=== PATIENT | female | born 1980 | race African-American/Black ===

== ENCOUNTER 2016-04-21 16:58 | Emergency (ER) | payer MEDICAID ==
[~2016-04-21] VITALS: Ht 160 cm; Wt 77.7 kg
[~2016-04-21 16:58] MED LIST: AMOXICILLIN 50500 MG PO; GICOCKTAIL PO; K-DUR 10 MEQ T10 MEQ PO; KLOR-CON M2020 MEQ PO; KLOR-CON20 MEQ PO; LANTUS100 U/ML SQ; MAG-OX 400400 MG/TAB PO; NORCO 325 MG-51 TAB PO; NOVOLOG 100U100 U/M1 SQ; OMNICEF 300MG300 MG PO; PHENERGAN 25 TA25 MG PO; PHENERGAN25 MG RC; REGLAN 10MG10 MG/TAB PO; TUMS EXTRA STR750 MG PO; ULTRAM 50MG TAB50 MG PO; ZOFRAN 4MG T4 MG/TAB PO; ZOFRAN ODT8 MG PO; ZOFRAN8 MG PO
[2016-04-21 17:09] VITALS: TEMP 98.8
[2016-04-21 18:03] LABS: BASO # 0.1 (0.0-0.2); BASO % 0.7 % (0.0-2.0); EOS % 0.4 % (0-4.0); GRAN # 6.5 (1.4-6.5); GRAN % 65.8 % (42.2-75.2); HEMATOCRIT 37.6 % (37.0-47.0); HEMOGLOBIN 12.6 g/dl (12.5-16.0); LYMPH # 2.6 (1.2-3.4); LYMPH % 26.2 % (20.0-51.0); MEAN CELL VOLUME 93 fl (80.0-100.0); MEAN CORPUSCULAR HEMOGLOBIN 31 pg (27.0-31.0); MEAN CORPUSCULAR HGB CONC 34 g/dl (33.0-37.0); MEAN PLATELET VOLUME 12.5 fl (7.4-10.4); MONO # 0.7 (0.1-0.6); MONO % 6.8 % (1.7-9.3); PLATELET COUNT 212 K/mm3 (130-400); RED BLOOD COUNT 4.05 M/mm3 (4.10-5.30); REDCELL DISTRIBUTION WIDTH-CV 12.3 % (11.5-14.5); WHITE BLOOD COUNT 9.9 K/mm3 (4.8-10.8)
[2016-04-21 18:23] LABS: ADJUSTED CALCIUM 9.8 mg/dL (8.4-10.2); ALANINE AMINOTRANSFERASE 40 U/L (9-52); ALBUMIN 4.8 gm/dL (3.5-5.0); ALKALINE PHOSPHATASE 59 U/L (50-136); ANION GAP 14 mmol/L (7-16); BILIRUBIN,TOTAL 0.9 mg/dL (0.0-1.0); BLOOD UREA NITROGEN 11 mg/dL (7-17); CALCIUM 10.4 mg/dL (8.4-10.2); CARBON DIOXIDE 30 mmol/L (22-30); CHLORIDE 98 mmol/L (98-107); CREATININE, serum 0.76 mg/dL (0.52-1.25); GLUCOSE 180 mg/dL (74-106); LIPASE 100 U/L (23-300); POTASSIUM 3.6 mmol/L (3.4-5.0); SODIUM 143 mmol/L (137-145); TOTAL PROTEIN 8.8 gm/dL (6.4-8.2)
[2016-04-21 18:37] LABS: C-REACTIVE PROTEIN < 0.5 mg/dL (0.0-0.9)
[2016-04-21] MEDS ORDERED: PHENERGAN25 MG RC (18:50)
[2016-04-21 19:32] VITALS: BP 129/81; PULSE 78
== END 2016-04-21 19:37 | disposition home or self-care (01) ==
LOC: COL.ER 16:58
PROVIDERS: Emergency Medicine
DX: R10.84 Generalized abdominal pain (principal); R11.10 Vomiting, unspecified; E11.43 Type 2 diabetes mellitus with diabetic autonomic (poly)neuropathy; K31.84 Gastroparesis; Z79.4 Long term (current) use of insulin
CPT/HCPCS: J1170; J2405; J2550; J7030

== ENCOUNTER 2016-04-23 15:03 | Emergency (ER) | payer MEDICAID ==
[~2016-04-23] VITALS: Ht 160 cm; Wt 77.3 kg
[2016-04-23 16:10] LABS: BASO # 0.1 (0.0-0.2); BASO % 0.8 % (0.0-2.0); EOS # 0.1 (0.0-0.7); EOS % 0.6 % (0-4.0); GRAN # 7.2 (1.4-6.5); GRAN % 63.3 % (42.2-75.2); HEMATOCRIT 38.9 % (37.0-47.0); HEMOGLOBIN 13.2 g/dl (12.5-16.0); LYMPH % 26.2 % (20.0-51.0); MEAN CELL VOLUME 91 fl (80.0-100.0); MEAN CORPUSCULAR HEMOGLOBIN 31 pg (27.0-31.0); MEAN CORPUSCULAR HGB CONC 34 g/dl (33.0-37.0); MEAN PLATELET VOLUME 12.6 fl (7.4-10.4); MONO % 8.9 % (1.7-9.3); PLATELET COUNT 212 K/mm3 (130-400); RED BLOOD COUNT 4.26 M/mm3 (4.10-5.30); REDCELL DISTRIBUTION WIDTH-CV 12.2 % (11.5-14.5); WHITE BLOOD COUNT 11.4 K/mm3 (4.8-10.8)
[2016-04-23 16:21] LABS: ADJUSTED CALCIUM 10.8 mg/dL (8.4-10.2); ALBUMIN 4.9 gm/dL (3.5-5.0); BILIRUBIN,TOTAL 1.1 mg/dL (0.0-1.0); CALCIUM 11.5 mg/dL (8.4-10.2); CREATININE, serum 0.79 mg/dL (0.52-1.25); POTASSIUM 3.6 mmol/L (3.4-5.0); TOTAL PROTEIN 9.2 gm/dL (6.4-8.2)
[2016-04-23 16:54] LABS: PH 6 (5-8); URINE APPEARANCE Cloudy; URINE BACTERIA Moderate /hpf; URINE BILIRUBIN Negative (NEGATIVE); URINE BLOOD Negative (NEGATIVE); URINE COLOR Amber; URINE GLUCOSE 2+ (NEGATIVE); URINE KETONE 1+ (NEGATIVE); URINE UROBILINOGEN Negative (NEGATIVE); URINE WBC >50 /hpf
[2016-04-23] MEDS ORDERED: MACROBID 1100 MG/CAP PO (17:07)
[2016-04-23 17:21] VITALS: BP 117/76; PULSE 95; TEMP 98.7
== END 2016-04-23 17:26 | disposition home or self-care (01) ==
LOC: COL.ER 15:03
PROVIDERS: Nurse Practitioner
DX: N39.0 Urinary tract infection, site not specified (principal); B95.2 Enterococcus as the cause of diseases classified elsewhere; R10.13 Epigastric pain; R11.10 Vomiting, unspecified; E10.43 Type 1 diabetes mellitus with diabetic autonomic (poly)neuropathy; K31.84 Gastroparesis; Z79.4 Long term (current) use of insulin
CPT/HCPCS: J1170; J1200; J1630; J2550; J7030

== ENCOUNTER 2016-04-26 11:02 | Emergency (ER) | payer MEDICAID ==
[~2016-04-26] VITALS: Ht 160 cm; Wt 71.4 kg
[~2016-04-26 11:02] MED LIST changes: +MACROBID 1100 MG/CAP PO
[2016-04-26 11:04] VITALS: TEMP 97.5
[2016-04-26 12:57] LABS: BASO # 0.1 (0.0-0.2); BASO % 0.6 % (0.0-2.0); EOS # 0.1 (0.0-0.7); EOS % 0.6 % (0-4.0); GRAN # 6.5 (1.4-6.5); GRAN % 66.3 % (42.2-75.2); HEMATOCRIT 36.1 % (37.0-47.0); HEMOGLOBIN 12.4 g/dl (12.5-16.0); LYMPH # 2.3 (1.2-3.4); LYMPH % 23.3 % (20.0-51.0); MEAN CELL VOLUME 90 fl (80.0-100.0); MEAN CORPUSCULAR HEMOGLOBIN 31 pg (27.0-31.0); MEAN CORPUSCULAR HGB CONC 34 g/dl (33.0-37.0); MEAN PLATELET VOLUME 12.4 fl (7.4-10.4); MONO # 0.9 (0.1-0.6); PLATELET COUNT 176 K/mm3 (130-400); REDCELL DISTRIBUTION WIDTH-CV 12.2 % (11.5-14.5); WHITE BLOOD COUNT 9.8 K/mm3 (4.8-10.8)
[2016-04-26 13:14] LABS: ALBUMIN 4.7 gm/dL (3.5-5.0); CALCIUM 10.6 mg/dL (8.4-10.2); CREATININE, serum 0.88 mg/dL (0.52-1.25); TOTAL PROTEIN 8.6 gm/dL (6.4-8.2)
[2016-04-26] MEDS ORDERED: PHENERGAN 25 TA25 MG PO (14:31)
[2016-04-26] MEDS ORDERED: K-DUR 10 MEQ T10 MEQ PO (15:08)
[2016-04-26 15:20] VITALS: BP 129/94; PULSE 98
== END 2016-04-26 15:23 | disposition home or self-care (01) ==
LOC: COL.ER 11:02
PROVIDERS: Emergency Medicine
DX: R07.9 Chest pain, unspecified (principal); R10.13 Epigastric pain; R11.10 Vomiting, unspecified; R00.0 Tachycardia, unspecified; I49.3 Ventricular premature depolarization
CPT/HCPCS: J1170; J1200; J1630; J2405; J7030

== ENCOUNTER 2016-04-28 19:09 | Emergency (ER) | payer MEDICAID ==
[~2016-04-28] VITALS: Ht 160 cm; Wt 77.3 kg
[2016-04-28 19:13] VITALS: TEMP 98.3
[2016-04-28 20:12] LABS: BASO # 0.1 (0.0-0.2); BASO % 0.6 % (0.0-2.0); EOS # 0.1 (0.0-0.7); EOS % 0.5 % (0-4.0); GRAN # 8.4 (1.4-6.5); GRAN % 71.3 % (42.2-75.2); HEMOGLOBIN 12.2 g/dl (12.5-16.0); LYMPH # 2.6 (1.2-3.4); LYMPH % 21.7 % (20.0-51.0); MEAN CELL VOLUME 90 fl (80.0-100.0); MEAN CORPUSCULAR HEMOGLOBIN 32 pg (27.0-31.0); MEAN CORPUSCULAR HGB CONC 35 g/dl (33.0-37.0); MONO # 0.7 (0.1-0.6); MONO % 5.6 % (1.7-9.3); PLATELET COUNT 182 K/mm3 (130-400); RED BLOOD COUNT 3.87 M/mm3 (4.10-5.30); REDCELL DISTRIBUTION WIDTH-CV 12.3 % (11.5-14.5); WHITE BLOOD COUNT 11.8 K/mm3 (4.8-10.8)
[2016-04-28 20:22] LABS: ADJUSTED CALCIUM 9.4 mg/dL (8.4-10.2); ALBUMIN 4.6 gm/dL (3.5-5.0); BILIRUBIN,TOTAL 0.8 mg/dL (0.0-1.0); CALCIUM 9.9 mg/dL (8.4-10.2); CREATININE, serum 0.85 mg/dL (0.52-1.25); POTASSIUM 3.1 mmol/L (3.4-5.0); TOTAL PROTEIN 8.2 gm/dL (6.4-8.2)
[2016-04-28 20:38] VITALS: BP 165/103; PULSE 103
== END 2016-04-28 21:08 | disposition home or self-care (01) ==
LOC: COL.ER 19:09
PROVIDERS: Family Medicine
DX: E11.43 Type 2 diabetes mellitus with diabetic autonomic (poly)neuropathy (principal); K31.84 Gastroparesis; Z79.4 Long term (current) use of insulin
CPT/HCPCS: J1170; J2550; J7030

== ENCOUNTER 2016-05-04 20:11 | Emergency (ER) | payer MEDICAID ==
[~2016-05-04] VITALS: Ht 160 cm; Wt 72.7 kg
[2016-05-04 20:16] VITALS: TEMP 98.2
[2016-05-04 21:15] LABS: BASO # 0.1 (0.0-0.2); BASO % 0.5 % (0.0-2.0); EOS # 0.1 (0.0-0.7); GRAN # 7.9 (1.4-6.5); GRAN % 65.5 % (42.2-75.2); HEMATOCRIT 35.7 % (37.0-47.0); HEMOGLOBIN 12.3 g/dl (12.5-16.0); LYMPH # 3.1 (1.2-3.4); LYMPH % 25.9 % (20.0-51.0); MEAN CELL VOLUME 90 fl (80.0-100.0); MEAN CORPUSCULAR HEMOGLOBIN 31 pg (27.0-31.0); MEAN CORPUSCULAR HGB CONC 35 g/dl (33.0-37.0); MEAN PLATELET VOLUME 12.8 fl (7.4-10.4); MONO # 0.8 (0.1-0.6); MONO % 6.9 % (1.7-9.3); PLATELET COUNT 178 K/mm3 (130-400); RED BLOOD COUNT 3.98 M/mm3 (4.10-5.30); REDCELL DISTRIBUTION WIDTH-CV 12.1 % (11.5-14.5)
[2016-05-04 21:40] LABS: ADJUSTED CALCIUM 9.3 mg/dL (8.4-10.2); ALANINE AMINOTRANSFERASE 25 U/L (9-52); ALBUMIN 4.5 gm/dL (3.5-5.0); ALKALINE PHOSPHATASE 53 U/L (50-136); ANION GAP 13 mmol/L (7-16); BILIRUBIN,TOTAL 0.7 mg/dL (0.0-1.0); BLOOD UREA NITROGEN 7 mg/dL (7-17); C-REACTIVE PROTEIN < 0.5 mg/dL (0.0-0.9); CALCIUM 9.7 mg/dL (8.4-10.2); CARBON DIOXIDE 29 mmol/L (22-30); CHLORIDE 97 mmol/L (98-107); CREATININE, serum 0.75 mg/dL (0.52-1.25); GLUCOSE 208 mg/dL (74-106); POTASSIUM 3.3 mmol/L (3.4-5.0); SODIUM 140 mmol/L (137-145); TOTAL PROTEIN 8.1 gm/dL (6.4-8.2)
[2016-05-04 22:32] VITALS: BP 121/72; PULSE 85
== END 2016-05-04 22:35 | disposition home or self-care (01) ==
LOC: COL.ER 20:11
PROVIDERS: Physician Assistant
DX: E11.43 Type 2 diabetes mellitus with diabetic autonomic (poly)neuropathy (principal); K31.84 Gastroparesis; Z79.4 Long term (current) use of insulin
CPT/HCPCS: J1170; J2405; J2550; J7030

== ENCOUNTER 2016-06-03 16:01 | Emergency (ER) | payer MEDICAID ==
[~2016-06-03] VITALS: Ht 160 cm; Wt 68.2 kg
[2016-06-03 16:06] VITALS: TEMP 98.1
[2016-06-03] MEDS ORDERED: PROTONIX20 MG PO (16:29)
[2016-06-03] MEDS ORDERED: REGLAN 10MG10 MG/TAB PO (16:29)
[2016-06-03] MEDS ORDERED: ULTRAM 50MG TAB50 MG PO (16:47)
[2016-06-03] MEDS ORDERED: PHENERGAN25 MG RC (16:47)
[2016-06-03] MEDS ORDERED: ZOFRAN ODT8 MG PO (16:47)
[2016-06-03 16:56] LABS: BASO # 0.1 (0.0-0.2); BASO % 0.5 % (0.0-2.0); EOS % 0.2 % (0-4.0); GRAN # 7.2 (1.4-6.5); GRAN % 69.8 % (42.2-75.2); HEMATOCRIT 37.6 % (37.0-47.0); HEMOGLOBIN 12.6 g/dl (12.5-16.0); LYMPH # 2.4 (1.2-3.4); LYMPH % 23.2 % (20.0-51.0); MEAN CELL VOLUME 92 fl (80.0-100.0); MEAN CORPUSCULAR HEMOGLOBIN 31 pg (27.0-31.0); MEAN CORPUSCULAR HGB CONC 34 g/dl (33.0-37.0); MONO # 0.6 (0.1-0.6); MONO % 6.1 % (1.7-9.3); PLATELET COUNT 205 K/mm3 (130-400); RED BLOOD COUNT 4.08 M/mm3 (4.10-5.30); REDCELL DISTRIBUTION WIDTH-CV 12.8 % (11.5-14.5); WHITE BLOOD COUNT 10.3 K/mm3 (4.8-10.8)
[2016-06-03 17:05] LABS: ADJUSTED CALCIUM 10.5 mg/dL (8.4-10.2); ALBUMIN 4.6 gm/dL (3.5-5.0); CREATININE, serum 0.82 mg/dL (0.52-1.25); POTASSIUM 3.6 mmol/L (3.4-5.0); TOTAL PROTEIN 8.5 gm/dL (6.4-8.2)
[2016-06-03 18:34] VITALS: BP 121/74; PULSE 89
[2016-06-04] MEDS ORDERED: BACTRIM DS 8001 TAB PO (12:38)
== END 2016-06-03 18:34 | disposition home or self-care (01) ==
LOC: COL.ER 16:01
PROVIDERS: Emergency Medicine
DX: R10.31 Right lower quadrant pain (principal); R10.32 Left lower quadrant pain; R10.2 Pelvic and perineal pain; E11.43 Type 2 diabetes mellitus with diabetic autonomic (poly)neuropathy; K31.84 Gastroparesis; Z79.4 Long term (current) use of insulin
CPT/HCPCS: J1170; J1885; J2405; J2765; J7030

== ENCOUNTER 2016-06-04 10:46 | Emergency (ER) | payer MEDICAID ==
[~2016-06-04] VITALS: Ht 160 cm; Wt 68.2 kg
[~2016-06-04 10:46] MED LIST changes: +PROTONIX20 MG PO
[2016-06-04 10:57] VITALS: TEMP 98.3
[2016-06-04 11:28] LABS: BASO % 0.4 % (0.0-2.0); EOS # 0.1 (0.0-0.7); EOS % 0.5 % (0-4.0); GRAN % 73.5 % (42.2-75.2); HEMOGLOBIN 12.1 g/dl (12.5-16.0); LYMPH # 1.9 (1.2-3.4); LYMPH % 19.6 % (20.0-51.0); MEAN CELL VOLUME 94 fl (80.0-100.0); MEAN CORPUSCULAR HEMOGLOBIN 31 pg (27.0-31.0); MEAN CORPUSCULAR HGB CONC 33 g/dl (33.0-37.0); MEAN PLATELET VOLUME 12.8 fl (7.4-10.4); MONO # 0.5 (0.1-0.6); MONO % 5.6 % (1.7-9.3); PLATELET COUNT 191 K/mm3 (130-400); RED BLOOD COUNT 3.93 M/mm3 (4.10-5.30); REDCELL DISTRIBUTION WIDTH-CV 12.8 % (11.5-14.5); WHITE BLOOD COUNT 9.6 K/mm3 (4.8-10.8)
[2016-06-04 11:29] LABS: HEMATOCRIT 36.9 % (37.0-47.0)
[2016-06-04 11:35] LABS: PH 6 (5-8); URINE APPEARANCE Cloudy; URINE BACTERIA Many /hpf; URINE BILIRUBIN Negative (NEGATIVE); URINE BLOOD Negative (NEGATIVE); URINE COLOR Yellow; URINE GLUCOSE 1+ (NEGATIVE); URINE KETONE Trace (NEGATIVE); URINE RBC 20-50 /hpf; URINE UROBILINOGEN Negative (NEGATIVE); URINE WBC >50 /hpf
[2016-06-04 11:47] LABS: ADJUSTED CALCIUM 9.2 mg/dL (8.4-10.2); ALBUMIN 4.4 gm/dL (3.5-5.0); CALCIUM 9.5 mg/dL (8.4-10.2); CREATININE, serum 0.89 mg/dL (0.52-1.25); POTASSIUM 3.4 mmol/L (3.4-5.0); TOTAL PROTEIN 8.1 gm/dL (6.4-8.2)
[2016-06-04] MEDS ORDERED: BACTRIM DS 8001 TAB PO (12:38)
[2016-06-04 12:52] VITALS: BP 140/90; PULSE 92
== END 2016-06-04 12:54 | disposition home or self-care (01) ==
LOC: COL.ER 10:46
PROVIDERS: Emergency Medicine
DX: E11.43 Type 2 diabetes mellitus with diabetic autonomic (poly)neuropathy (principal); K31.84 Gastroparesis; N39.0 Urinary tract infection, site not specified
CPT/HCPCS: J0696; J1170; J1630; J2765; J7030

== ENCOUNTER 2016-06-06 14:09 | Emergency (ER) | payer MEDICAID ==
[~2016-06-06] VITALS: Ht 160 cm; Wt 68.2 kg
[~2016-06-06 14:09] MED LIST changes: +BACTRIM DS 8001 TAB PO
[2016-06-06 14:11] VITALS: TEMP 98
[2016-06-06 16:28] VITALS: BP 136/91; PULSE 99
== END 2016-06-06 16:29 | disposition home or self-care (01) ==
LOC: COL.ER 14:09
DX: R11.10 Vomiting, unspecified (principal); R10.816 Epigastric abdominal tenderness
CPT/HCPCS: J1200; J1630; J1885; J2405; J7030

== ENCOUNTER 2016-06-23 18:06 | Emergency (ER) | payer MEDICAID ==
[~2016-06-23] VITALS: Ht 7.6 cm; Wt 68.2 kg
[2016-06-23] MEDS ORDERED: REGLAN 10MG10 MG/TAB PO (19:12)
[2016-06-23] MEDS ORDERED: ZOFRAN ODT8 MG PO (19:12)
[2016-06-23 19:38] LABS: BASO # 0.1 (0.0-0.2); BASO % 0.6 % (0.0-2.0); EOS # 0.1 (0.0-0.7); EOS % 0.7 % (0-4.0); GRAN # 6.8 (1.4-6.5); GRAN % 65.1 % (42.2-75.2); HEMATOCRIT 38.4 % (37.0-47.0); HEMOGLOBIN 13.1 g/dl (12.5-16.0); LYMPH # 2.8 (1.2-3.4); LYMPH % 27.1 % (20.0-51.0); MEAN CELL VOLUME 91 fl (80.0-100.0); MEAN CORPUSCULAR HEMOGLOBIN 31 pg (27.0-31.0); MEAN CORPUSCULAR HGB CONC 34 g/dl (33.0-37.0); MEAN PLATELET VOLUME 13.1 fl (7.4-10.4); MONO # 0.7 (0.1-0.6); MONO % 6.4 % (1.7-9.3); PLATELET COUNT 186 K/mm3 (130-400); RED BLOOD COUNT 4.23 M/mm3 (4.10-5.30); REDCELL DISTRIBUTION WIDTH-CV 12.4 % (11.5-14.5); WHITE BLOOD COUNT 10.4 K/mm3 (4.8-10.8)
[2016-06-23 19:44] LABS: ADJUSTED CALCIUM 10.3 mg/dL (8.4-10.2); CALCIUM 11.1 mg/dL (8.4-10.2); CREATININE, serum 1.15 mg/dL (0.52-1.25); MAGNESIUM 1.6 mg/dL (1.6-2.3); POTASSIUM 3.4 mmol/L (3.4-5.0); TOTAL PROTEIN 8.7 gm/dL (6.4-8.2)
[2016-06-23 20:14] LABS: PH 5 (5-8); URINE APPEARANCE Cloudy; URINE BACTERIA Rare /hpf; URINE BILIRUBIN Negative (NEGATIVE); URINE BLOOD Negative (NEGATIVE); URINE COLOR Amber; URINE GLUCOSE 1+ (NEGATIVE); URINE KETONE 1+ (NEGATIVE); URINE UROBILINOGEN Negative (NEGATIVE)
[2016-06-23] MEDS ORDERED: CEPHALEXIN500 M1 PO (20:26)
[2016-06-23 20:40] VITALS: BP 132/66; PULSE 68; TEMP 36.4
== END 2016-06-23 20:42 | disposition home or self-care (01) ==
LOC: COL.ER 18:06
PROVIDERS: Emergency Medicine
DX: E11.43 Type 2 diabetes mellitus with diabetic autonomic (poly)neuropathy (principal); K31.84 Gastroparesis; Z79.4 Long term (current) use of insulin; N39.0 Urinary tract infection, site not specified
CPT/HCPCS: J1170; J1630; J2405; J2765; J7030

== ENCOUNTER 2016-07-05 20:03 | Emergency (ER) | payer MEDICAID ==
[~2016-07-05] VITALS: Ht 160 cm; Wt 67.3 kg
[~2016-07-05 20:03] MED LIST changes: +CEPHALEXIN500 M1 PO
[2016-07-05 20:06] VITALS: TEMP 98.2
[2016-07-05 22:27] VITALS: BP 138/88; PULSE 92
== END 2016-07-05 22:29 | disposition home or self-care (01) ==
LOC: COL.ER 20:03
DX: K56.41 Fecal impaction (principal); E11.43 Type 2 diabetes mellitus with diabetic autonomic (poly)neuropathy; K31.84 Gastroparesis; Z79.4 Long term (current) use of insulin

== ENCOUNTER 2016-08-16 08:36 | Emergency (ER) | payer MEDICAID ==
[~2016-08-16] VITALS: Ht 160 cm; Wt 68.2 kg
[2016-08-16 08:43] VITALS: TEMP 98.1
[2016-08-16 09:39] LABS: BASO # 0.1 (0.0-0.2); BASO % 0.8 % (0.0-2.0); EOS # 0.1 (0.0-0.7); GRAN # 7.2 (1.4-6.5); GRAN % 68.8 % (42.2-75.2); HEMATOCRIT 39.3 % (37.0-47.0); HEMOGLOBIN 13.4 g/dl (12.5-16.0); LYMPH # 2.4 (1.2-3.4); LYMPH % 22.8 % (20.0-51.0); MEAN CELL VOLUME 92 fl (80.0-100.0); MEAN CORPUSCULAR HEMOGLOBIN 32 pg (27.0-31.0); MEAN CORPUSCULAR HGB CONC 34 g/dl (33.0-37.0); MONO # 0.7 (0.1-0.6); MONO % 6.3 % (1.7-9.3); PLATELET COUNT 168 K/mm3 (130-400); RED BLOOD COUNT 4.26 M/mm3 (4.10-5.30); REDCELL DISTRIBUTION WIDTH-CV 12.9 % (11.5-14.5); WHITE BLOOD COUNT 10.5 K/mm3 (4.8-10.8)
[2016-08-16 09:47] LABS: ADJUSTED CALCIUM 9.5 mg/dL (8.4-10.2); ALBUMIN 4.7 gm/dL (3.5-5.0); BILIRUBIN,TOTAL 1.1 mg/dL (0.0-1.0); CALCIUM 10.1 mg/dL (8.4-10.2); CREATININE, serum 0.96 mg/dL (0.52-1.25); POTASSIUM 3.6 mmol/L (3.4-5.0); TOTAL PROTEIN 8.5 gm/dL (6.4-8.2)
[2016-08-16 10:33] VITALS: BP 111/82
[2016-08-16 11:54] VITALS: PULSE 90
== END 2016-08-16 11:54 | disposition home or self-care (01) ==
LOC: COL.ER 08:36
PROVIDERS: Nurse Practitioner
DX: E11.43 Type 2 diabetes mellitus with diabetic autonomic (poly)neuropathy (principal); K31.84 Gastroparesis; Z79.4 Long term (current) use of insulin
CPT/HCPCS: J1170; J1630; J2405; J2765; J7030

== ENCOUNTER 2016-08-18 14:45 | Emergency (ER) | payer MEDICAID ==
[~2016-08-18] VITALS: Ht 160 cm; Wt 68.2 kg
[2016-08-18 14:54] VITALS: TEMP 98.5
[2016-08-18] MEDS ORDERED: REGLAN 10MG10 MG/TAB PO (15:23)
[2016-08-18] MEDS ORDERED: AMBIEN 5MG TABLE5 MG PO (15:23)
[2016-08-18] MEDS ORDERED: LEXAPRO 10MG10 MG PO (15:23)
[2016-08-18 15:38] LABS: BASO # 0.1 (0.0-0.2); BASO % 0.8 % (0.0-2.0); EOS # 0.1 (0.0-0.7); EOS % 0.4 % (0-4.0); GRAN # 8.2 (1.4-6.5); GRAN % 70.1 % (42.2-75.2); HEMATOCRIT 38.7 % (37.0-47.0); HEMOGLOBIN 13.5 g/dl (12.5-16.0); LYMPH # 2.5 (1.2-3.4); LYMPH % 21.1 % (20.0-51.0); MEAN CELL VOLUME 91 fl (80.0-100.0); MEAN CORPUSCULAR HEMOGLOBIN 32 pg (27.0-31.0); MEAN CORPUSCULAR HGB CONC 35 g/dl (33.0-37.0); MEAN PLATELET VOLUME 13.1 fl (7.4-10.4); MONO # 0.9 (0.1-0.6); MONO % 7.3 % (1.7-9.3); PLATELET COUNT 215 K/mm3 (130-400); RED BLOOD COUNT 4.27 M/mm3 (4.10-5.30); REDCELL DISTRIBUTION WIDTH-CV 12.7 % (11.5-14.5); WHITE BLOOD COUNT 11.6 K/mm3 (4.8-10.8)
[2016-08-18 16:04] LABS: ADJUSTED CALCIUM 10.7 mg/dL (8.4-10.2); ALANINE AMINOTRANSFERASE 51 U/L (9-52); ALBUMIN 4.9 gm/dL (3.5-5.0); ALKALINE PHOSPHATASE 58 U/L (50-136); ANION GAP 17 mmol/L (7-16); BILIRUBIN,TOTAL 0.9 mg/dL (0.0-1.0); BLOOD UREA NITROGEN 15 mg/dL (7-17); CALCIUM 11.4 mg/dL (8.4-10.2); CARBON DIOXIDE 36 mmol/L (22-30); GLUCOSE 173 mg/dL (74-106); SODIUM 138 mmol/L (137-145); TOTAL PROTEIN 8.9 gm/dL (6.4-8.2)
[2016-08-18 16:06] LABS: CHLORIDE 84 mmol/L (98-107)
[2016-08-18 16:53] LABS: C-REACTIVE PROTEIN < 0.5 mg/dL (0.0-0.9)
[2016-08-18 17:59] VITALS: BP 152/90; PULSE 98
== END 2016-08-18 18:01 | disposition home or self-care (01) ==
LOC: COL.ER 14:45
PROVIDERS: Nurse Practitioner
DX: E11.43 Type 2 diabetes mellitus with diabetic autonomic (poly)neuropathy (principal); K31.84 Gastroparesis; Z79.4 Long term (current) use of insulin; R00.0 Tachycardia, unspecified
CPT/HCPCS: J1630; J2405; J7030

== ENCOUNTER 2016-10-07 13:54 | Emergency (ER) | payer MEDICAID ==
[~2016-10-07] VITALS: Ht 160 cm; Wt 73.5 kg
[~2016-10-07 13:54] MED LIST changes: +AMBIEN 5MG TABLE5 MG PO; +LEXAPRO 10MG10 MG PO
[2016-10-07 13:57] VITALS: TEMP 98.6
[2016-10-07 14:57] LABS: ALANINE AMINOTRANSFERASE 28 U/L (9-52); ALBUMIN 5.1 gm/dL (3.5-5.0); ALKALINE PHOSPHATASE 53 U/L (50-136); ANION GAP 15 mmol/L (7-16); BILIRUBIN,TOTAL 1.1 mg/dL (0.0-1.0); BLOOD UREA NITROGEN 17 mg/dL (7-17); CALCIUM 10.9 mg/dL (8.4-10.2); CARBON DIOXIDE 30 mmol/L (22-30); CHLORIDE 94 mmol/L (98-107); CREATININE, serum 0.93 mg/dL (0.52-1.25); GLUCOSE 116 mg/dL (74-106); LIPASE 92 U/L (23-300); POTASSIUM 3.9 mmol/L (3.4-5.0); SODIUM 140 mmol/L (137-145); TOTAL PROTEIN 9.2 gm/dL (6.4-8.2)
[2016-10-07 14:59] LABS: C-REACTIVE PROTEIN < 0.5 mg/dL (0.0-0.9)
[2016-10-07 15:10] LABS: BASO # 0.1 (0.0-0.2); BASO % 0.5 % (0.0-2.0); EOS # 0.1 (0.0-0.7); EOS % 0.7 % (0-4.0); GRAN # 7.4 (1.4-6.5); GRAN % 69.1 % (42.2-75.2); HEMOGLOBIN 12.7 g/dl (12.5-16.0); LYMPH # 2.4 (1.2-3.4); LYMPH % 22.1 % (20.0-51.0); MEAN CELL VOLUME 92 fl (80.0-100.0); MEAN CORPUSCULAR HEMOGLOBIN 32 pg (27.0-31.0); MEAN CORPUSCULAR HGB CONC 34 g/dl (33.0-37.0); MEAN PLATELET VOLUME 12.7 fl (7.4-10.4); MONO # 0.8 (0.1-0.6); MONO % 7.2 % (1.7-9.3); PLATELET COUNT 201 K/mm3 (130-400); WHITE BLOOD COUNT 10.7 K/mm3 (4.8-10.8)
[2016-10-07 15:17] LABS: HEMATOCRIT 36.9 % (37.0-47.0)
[2016-10-07 15:38] LABS: MAGNESIUM 1.6 mg/dL (1.6-2.3)
[2016-10-07] MEDS ORDERED: ZOFRAN 4MG T4 MG/TAB PO (15:51)
[2016-10-07] MEDS ORDERED: PHENERGAN25 MG RC (15:51)
[2016-10-07 17:59] LABS: PH 6 (5-8); URINE APPEARANCE Hazy; URINE BACTERIA Rare /hpf; URINE BILIRUBIN Negative (NEGATIVE); URINE BLOOD 3+ (NEGATIVE); URINE COLOR Red; URINE GLUCOSE 1+ (NEGATIVE); URINE KETONE 1+ (NEGATIVE); URINE UROBILINOGEN Negative (NEGATIVE)
[2016-10-07 18:01] LABS: URINE WBC 20-50 /hpf
[2016-10-07] MEDS ORDERED: MACROBID 1100 MG/CAP PO (19:07)
[2016-10-07 19:20] VITALS: BP 138/98; PULSE 102
== END 2016-10-07 19:23 | disposition home or self-care (01) ==
LOC: COL.ER 13:54
PROVIDERS: Emergency Medicine
DX: K31.84 Gastroparesis (principal); K21.9 Gastro-esophageal reflux disease without esophagitis; E10.43 Type 1 diabetes mellitus with diabetic autonomic (poly)neuropathy; Z79.4 Long term (current) use of insulin; Z90.49 Acquired absence of other specified parts of digestive tract
CPT/HCPCS: J1170; J2405; J2550; J7030

== ENCOUNTER 2016-10-17 15:26 | Inpatient (IN) | payer MEDICAID ==
[~2016-10-17] VITALS: Ht 160 cm; Wt 69.8 kg
[2016-10-17 16:12] LABS: VENOUS BLOOD GAS BE 21.7 (-4-4); VENOUS BLOOD GAS SAO2 44.5 % (60-80)
[2016-10-17 16:13] LABS: VENOUS BLOOD GAS SITE VENIPUNCTURE
[2016-10-17 16:16] LABS: HEMATOCRIT 39.4 % (37.0-47.0); HEMOGLOBIN 14.1 g/dl (12.5-16.0); MEAN CELL VOLUME 90 fl (80.0-100.0); MEAN CORPUSCULAR HEMOGLOBIN 32 pg (27.0-31.0); MEAN CORPUSCULAR HGB CONC 36 g/dl (33.0-37.0); MEAN PLATELET VOLUME 13.5 fl (7.4-10.4); PLATELET COUNT 214 K/mm3 (130-400); REDCELL DISTRIBUTION WIDTH-CV 12.3 % (11.5-14.5); WHITE BLOOD COUNT 16.1 K/mm3 (4.8-10.8)
[2016-10-17 16:23] LABS: HYALINE CAST >12 /lpf; PH 7 (5-8); URINE APPEARANCE Turbid; URINE BACTERIA Occasional /hpf; URINE BILIRUBIN Negative (NEGATIVE); URINE BLOOD Negative (NEGATIVE); URINE GLUCOSE 1+ (NEGATIVE); URINE KETONE Trace (NEGATIVE); URINE UROBILINOGEN Negative (NEGATIVE); URINE WBC >50 /hpf
[2016-10-17 16:24] LABS: URINE COLOR Yellow
[2016-10-17 16:31] LABS: ADD PATHOLOGY DIFF REVIEW NO
[2016-10-17 16:43] LABS: ALANINE AMINOTRANSFERASE 51 U/L (9-52); ALBUMIN 4.8 gm/dL (3.5-5.0); ALKALINE PHOSPHATASE 51 U/L (50-136); BILIRUBIN,TOTAL 1.1 mg/dL (0.0-1.0); BLOOD UREA NITROGEN 21 mg/dL (7-17); CREATININE, serum 1.78 mg/dL (0.52-1.25); GLUCOSE 238 mg/dL (74-106); LIPASE 97 U/L (23-300); SODIUM 132 mmol/L (137-145); TOTAL PROTEIN 8.7 gm/dL (6.4-8.2)
[2016-10-17 16:51] LABS: C-REACTIVE PROTEIN < 0.5 mg/dL (0.0-0.9)
[2016-10-17 17:11] LABS: CHLORIDE 72 mmol/L (98-107); POTASSIUM 2.7 mmol/L (3.4-5.0)
[2016-10-17 17:12] LABS: CALCIUM 13.6 mg/dL (8.4-10.2); CARBON DIOXIDE 43 mmol/L (22-30)
[2016-10-17 18:03] LABS: BAND 3 % (0-10); BASOPHIL 1 % (0-2); PLATELET ESTIMATE NORMAL (NORMAL)
[2016-10-17 18:04] LABS: NEUTROPHILS 71 % (42.0-75.2); TOTAL CELLS COUNTED 100
[2016-10-17 20:12] VITALS: BP 120/73; PULSE 109; TEMP 98.3
[2016-10-17 22:53] LABS: CALCIUM 11.7 mg/dL (8.4-10.2); CREATININE, serum 1.72 mg/dL (0.52-1.25); POTASSIUM 3.1 mmol/L (3.4-5.0)
[2016-10-18] VITALS: BP 98/64; PULSE 88; TEMP 97.3
[2016-10-18 03:21] LABS: BASO # 0.1 (0.0-0.2); BASO % 0.9 % (0.0-2.0); EOS # 0.1 (0.0-0.7); EOS % 1.3 % (0-4.0); GRAN # 5.1 (1.4-6.5); LYMPH # 3.4 (1.2-3.4); LYMPH % 34.7 % (20.0-51.0); MEAN CELL VOLUME 93 fl (80.0-100.0); MEAN CORPUSCULAR HGB CONC 34 g/dl (33.0-37.0); MEAN PLATELET VOLUME 12.8 fl (7.4-10.4); MONO # 1.1 (0.1-0.6); PLATELET COUNT 150 K/mm3 (130-400); RED BLOOD COUNT 3.58 M/mm3 (4.10-5.30); REDCELL DISTRIBUTION WIDTH-CV 12.6 % (11.5-14.5); WHITE BLOOD COUNT 9.8 K/mm3 (4.8-10.8)
[2016-10-18 03:23] LABS: HEMATOCRIT 33.2 % (37.0-47.0); HEMOGLOBIN 11.4 g/dl (12.5-16.0); MEAN CORPUSCULAR HEMOGLOBIN 32 pg (27.0-31.0)
[2016-10-18 03:30] LABS: CALCIUM 11.1 mg/dL (8.4-10.2); CREATININE, serum 1.7 mg/dL (0.52-1.25); MAGNESIUM 2.1 mg/dL (1.6-2.3); POTASSIUM 3.1 mmol/L (3.4-5.0)
[2016-10-18 03:59] VITALS: BP 101/71; PULSE 89; TEMP 97
[2016-10-18 08:03] VITALS: BP 111/75; PULSE 81; TEMP 97
[2016-10-18 11:30] VITALS: BP 128/81; PULSE 95; TEMP 97.1
[2016-10-18 16:28] VITALS: BP 106/68; PULSE 78; TEMP 98
[2016-10-18 20:00] VITALS: BP 97/61; PULSE 82; TEMP 98.2
[2016-10-19 00:27] VITALS: BP 100/64; PULSE 83; TEMP 98.7
[2016-10-19 07:16] VITALS: BP 140/90; PULSE 86; TEMP 98.2
[2016-10-19 07:57] LABS: CALCIUM 8.2 mg/dL (8.4-10.2); CREATININE, serum 1.21 mg/dL (0.52-1.25); POTASSIUM 3.2 mmol/L (3.4-5.0)
[2016-10-19 13:20] VITALS: BP 112/69; PULSE 84; TEMP 98
== END 2016-10-19 17:00 | disposition home or self-care (01) | DRG 74 ==
LOC: COL.ER 15:26 → MEDICAL 18:42
PROVIDERS: Emergency Medicine; Internal Medicine; Nurse Practitioner Family
DX: E10.43 Type 1 diabetes mellitus with diabetic autonomic (poly)neuropathy (principal); E87.3 Alkalosis; N17.9 Acute kidney failure, unspecified; E87.1 Hypo-osmolality and hyponatremia; K31.84 Gastroparesis; E87.6 Hypokalemia; E83.42 Hypomagnesemia; E83.52 Hypercalcemia; Z79.4 Long term (current) use of insulin
CPT/HCPCS: 99222-AI; 99239; C9113; J0696; J1170; J1650; J1815; J2405; J2550; J2765; J3475; J3480; J7030

== ENCOUNTER 2016-11-23 17:24 | Emergency (ER) | payer MEDICAID ==
[~2016-11-23] VITALS: Ht 160 cm; Wt 79.5 kg
[2016-11-23 17:26] VITALS: TEMP 99.7
[2016-11-23 19:37] LABS: BASO % 0.4 % (0.0-2.0); EOS % 0.5 % (0-4.0); GRAN # 3.6 (1.4-6.5); GRAN % 62.7 % (42.2-75.2); HEMATOCRIT 33.5 % (37.0-47.0); HEMOGLOBIN 11.2 g/dl (12.5-16.0); LYMPH # 1.4 (1.2-3.4); LYMPH % 24.2 % (20.0-51.0); MEAN CELL VOLUME 92 fl (80.0-100.0); MEAN CORPUSCULAR HEMOGLOBIN 31 pg (27.0-31.0); MEAN CORPUSCULAR HGB CONC 33 g/dl (33.0-37.0); MEAN PLATELET VOLUME 12.8 fl (7.4-10.4); MONO # 0.7 (0.1-0.6); MONO % 11.8 % (1.7-9.3); PLATELET COUNT 159 K/mm3 (130-400); RED BLOOD COUNT 3.63 M/mm3 (4.10-5.30); REDCELL DISTRIBUTION WIDTH-CV 12.9 % (11.5-14.5); WHITE BLOOD COUNT 5.7 K/mm3 (4.8-10.8)
[2016-11-23 19:44] LABS: ADJUSTED CALCIUM 9.9 mg/dL (8.4-10.2); BILIRUBIN,TOTAL 0.5 mg/dL (0.0-1.0); CALCIUM 9.9 mg/dL (8.4-10.2); CREATININE, serum 0.87 mg/dL (0.52-1.25); POTASSIUM 3.4 mmol/L (3.4-5.0); TOTAL PROTEIN 7.1 gm/dL (6.4-8.2)
[2016-11-23] MEDS ORDERED: PHENERGAN 25 TA25 MG PO (19:58)
[2016-11-23] MEDS ORDERED: PHENERGAN25 MG RC (19:58)
[2016-11-23 20:23] VITALS: BP 108/60; PULSE 81
== END 2016-11-23 20:28 | disposition home or self-care (01) ==
LOC: COL.ER 17:24
PROVIDERS: Emergency Medicine
DX: R11.2 Nausea with vomiting, unspecified (principal); E10.9 Type 1 diabetes mellitus without complications; Z87.19 Personal history of other diseases of the digestive system; Z90.49 Acquired absence of other specified parts of digestive tract; Z98.51 Tubal ligation status
CPT/HCPCS: J1170; J1200; J1630; J2405; J7030

== ENCOUNTER → 2016-12-11 | Outpatient (CLI) | payer MEDICAID ==
[~2016-12-11] MED LIST changes: +PROAIR HFA0.09 MG/AC IH
[2016-12-11 10:32] VITALS: BP 131/90; PULSE 93
== END ==
LOC: COL.CARD 10:04
DX: Z01.89 Encounter for other specified special examinations (principal)

== ENCOUNTER 2017-01-06 21:10 | Emergency (ER) | payer MEDICAID ==
[~2017-01-06] VITALS: Ht 160 cm; Wt 68.2 kg
[2017-01-06 21:12] VITALS: TEMP 98
[2017-01-06 22:04] LABS: BASO % 0.3 % (0.0-2.0); EOS # 0.1 (0.0-0.7); EOS % 0.5 % (0-4.0); GRAN # 8.2 (1.4-6.5); GRAN % 63.2 % (42.2-75.2); HEMATOCRIT 38.9 % (37.0-47.0); HEMOGLOBIN 13.1 g/dl (12.5-16.0); LYMPH # 3.5 (1.2-3.4); LYMPH % 26.7 % (20.0-51.0); MEAN CELL VOLUME 91 fl (80.0-100.0); MEAN CORPUSCULAR HEMOGLOBIN 31 pg (27.0-31.0); MEAN CORPUSCULAR HGB CONC 34 g/dl (33.0-37.0); MEAN PLATELET VOLUME 12.9 fl (7.4-10.4); MONO # 1.2 (0.1-0.6); PLATELET COUNT 220 K/mm3 (130-400); RED BLOOD COUNT 4.28 M/mm3 (4.10-5.30); WHITE BLOOD COUNT 12.9 K/mm3 (4.8-10.8)
[2017-01-06 22:19] LABS: ACETONE,SERUM SMALL
[2017-01-06 22:21] LABS: ADJUSTED CALCIUM 11.6 mg/dL (8.4-10.2); ALANINE AMINOTRANSFERASE 34 U/L (9-52); ALBUMIN 5.1 gm/dL (3.5-5.0); ALKALINE PHOSPHATASE 51 U/L (50-136); ANION GAP 16 mmol/L (7-16); BLOOD UREA NITROGEN 16 mg/dL (7-17); CALCIUM 12.5 mg/dL (8.4-10.2); CARBON DIOXIDE 34 mmol/L (22-30); CREATININE, serum 1.14 mg/dL (0.52-1.25); GLUCOSE 169 mg/dL (74-106); LIPASE 114 U/L (23-300); POTASSIUM 3.3 mmol/L (3.4-5.0); SODIUM 136 mmol/L (137-145)
[2017-01-06 22:22] LABS: C-REACTIVE PROTEIN < 0.5 mg/dL (0.0-0.9); CHLORIDE 87 mmol/L (98-107)
[2017-01-06] MEDS ORDERED: ZOFRAN 4MG T4 MG/TAB PO (22:51)
[2017-01-06] MEDS ORDERED: PHENERGAN25 MG RC (22:51)
[2017-01-06 23:55] LABS: COLLECTION METHOD CLEAN CATCH
[2017-01-07 00:05] LABS: AMORPHOUS CRYSTAL Present /uL; MUCOUS Present /lpf; PH 5 (5-8); URINE APPEARANCE Cloudy; URINE BACTERIA Rare /hpf; URINE BILIRUBIN Negative (NEGATIVE); URINE BLOOD Negative (NEGATIVE); URINE COLOR Yellow; URINE GLUCOSE Negative (NEGATIVE); URINE KETONE 1+ (NEGATIVE); URINE LEUKOCYTE ESTERASE 1+ (NEGATIVE); URINE PROTEIN(semi-quant) 1+ (NEGATIVE); URINE WBC 20-50 /hpf
[2017-01-07] MEDS ORDERED: CEFTIN 250250 MG/TAB PO (00:23)
[2017-01-07 01:01] VITALS: BP 159/87; PULSE 104
== END 2017-01-07 01:01 | disposition home or self-care (01) ==
LOC: COL.ER 21:10
PROVIDERS: Emergency Medicine
DX: E11.43 Type 2 diabetes mellitus with diabetic autonomic (poly)neuropathy (principal); K31.84 Gastroparesis; N39.0 Urinary tract infection, site not specified; E83.52 Hypercalcemia; R11.2 Nausea with vomiting, unspecified; F32.9 Major depressive disorder, single episode, unspecified; Z79.4 Long term (current) use of insulin; Z90.49 Acquired absence of other specified parts of digestive tract
CPT/HCPCS: J0696; J1170; J2405; J2550; J7030

== ENCOUNTER 2017-02-01 13:47 | Emergency (ER) | payer MEDICAID ==
[~2017-02-01] VITALS: Ht 160 cm; Wt 65.9 kg
[~2017-02-01 13:47] MED LIST changes: +CEFTIN 250250 MG/TAB PO
[2017-02-01 13:59] VITALS: TEMP 98.2
[2017-02-01 16:32] LABS: MEAN CELL VOLUME 92 fl (80.0-100.0); MEAN CORPUSCULAR HGB CONC 34 g/dl (33.0-37.0); MEAN PLATELET VOLUME 12.5 fl (7.4-10.4); PLATELET COUNT 172 K/mm3 (130-400); RED BLOOD COUNT 3.75 M/mm3 (4.10-5.30)
[2017-02-01 16:44] LABS: HEMATOCRIT 34.4 % (37.0-47.0); HEMOGLOBIN 11.8 g/dl (12.5-16.0); MEAN CORPUSCULAR HEMOGLOBIN 31 pg (27.0-31.0)
[2017-02-01 16:53] LABS: ALBUMIN 4.4 gm/dL (3.5-5.0); BILIRUBIN,TOTAL 0.5 mg/dL (0.0-1.0); CALCIUM 11.3 mg/dL (8.4-10.2); CREATININE, serum 1.24 mg/dL (0.52-1.25); POTASSIUM 3.1 mmol/L (3.4-5.0); TOTAL PROTEIN 7.6 gm/dL (6.4-8.2)
[2017-02-01 17:20] LABS: COLLECTION METHOD CLEAN CATCH
[2017-02-01 17:49] LABS: AMORPHOUS CRYSTAL Present /uL; MUCOUS Present /lpf; PH 8 (5-8); URINE APPEARANCE Turbid; URINE BACTERIA None Seen /hpf; URINE BILIRUBIN Negative (NEGATIVE); URINE BLOOD Negative (NEGATIVE); URINE COLOR Yellow; URINE GLUCOSE Negative (NEGATIVE); URINE KETONE Trace (NEGATIVE); URINE LEUKOCYTE ESTERASE Negative (NEGATIVE); URINE PROTEIN(semi-quant) 1+ (NEGATIVE); URINE UROBILINOGEN Negative (NEGATIVE); URINE WBC None Seen /hpf
[2017-02-01 18:24] VITALS: BP 127/90; PULSE 103
== END 2017-02-01 18:26 | disposition home or self-care (01) ==
LOC: COL.ER 13:47
PROVIDERS: Emergency Medicine
DX: E11.43 Type 2 diabetes mellitus with diabetic autonomic (poly)neuropathy (principal); K31.84 Gastroparesis; E87.6 Hypokalemia; Z90.49 Acquired absence of other specified parts of digestive tract; Z79.4 Long term (current) use of insulin
CPT/HCPCS: J1170; J2405; J2550; J7030

== ENCOUNTER 2017-02-23 09:10 | Emergency (ER) | payer MEDICAID ==
[~2017-02-23] VITALS: Ht 160 cm; Wt 68.2 kg
[2017-02-23 09:19] VITALS: TEMP 98.2
[2017-02-23 10:18] LABS: BASO % 0.4 % (0.0-2.0); EOS # 0.1 (0.0-0.7); EOS % 0.5 % (0-4.0); GRAN # 5.8 (1.4-6.5); GRAN % 64.3 % (42.2-75.2); HEMATOCRIT 39.1 % (37.0-47.0); HEMOGLOBIN 13.1 g/dl (12.5-16.0); LYMPH # 2.6 (1.2-3.4); LYMPH % 28.7 % (20.0-51.0); MEAN CELL VOLUME 92 fl (80.0-100.0); MEAN CORPUSCULAR HEMOGLOBIN 31 pg (27.0-31.0); MEAN CORPUSCULAR HGB CONC 34 g/dl (33.0-37.0); MEAN PLATELET VOLUME 13.2 fl (7.4-10.4); MONO # 0.5 (0.1-0.6); MONO % 5.8 % (1.7-9.3); PLATELET COUNT 172 K/mm3 (130-400); RED BLOOD COUNT 4.23 M/mm3 (4.10-5.30); WHITE BLOOD COUNT 9.1 K/mm3 (4.8-10.8)
[2017-02-23 10:28] LABS: ACETONE,SERUM NEGATIVE
[2017-02-23 10:31] LABS: ADJUSTED CALCIUM 9.5 mg/dL (8.4-10.2); ALANINE AMINOTRANSFERASE 35 U/L (9-52); ALKALINE PHOSPHATASE 55 U/L (50-136); ANION GAP 14 mmol/L (7-16); BILIRUBIN,TOTAL 0.8 mg/dL (0.0-1.0); BLOOD UREA NITROGEN 13 mg/dL (7-17); CALCIUM 10.3 mg/dL (8.4-10.2); CARBON DIOXIDE 26 mmol/L (22-30); CHLORIDE 99 mmol/L (98-107); CREATININE, serum 0.95 mg/dL (0.52-1.25); GLUCOSE 166 mg/dL (74-106); POTASSIUM 3.8 mmol/L (3.4-5.0); SODIUM 139 mmol/L (137-145); TOTAL PROTEIN 8.7 gm/dL (6.4-8.2)
[2017-02-23 11:00] LABS: COLLECTION METHOD CLEAN CATCH
[2017-02-23 11:15] LABS: MUCOUS Present /lpf; PH 5 (5-8); URINE APPEARANCE Cloudy; URINE BACTERIA Rare /hpf; URINE BILIRUBIN Negative (NEGATIVE); URINE BLOOD Negative (NEGATIVE); URINE COLOR Amber; URINE GLUCOSE 1+ (NEGATIVE); URINE KETONE Trace (NEGATIVE); URINE LEUKOCYTE ESTERASE Negative (NEGATIVE); URINE PROTEIN(semi-quant) 1+ (NEGATIVE); URINE UROBILINOGEN Negative (NEGATIVE)
[2017-02-23 12:20] VITALS: BP 168/82; PULSE 78
== END 2017-02-23 12:25 | disposition home or self-care (01) ==
LOC: COL.ER 09:10
PROVIDERS: Physician Assistant
DX: E10.43 Type 1 diabetes mellitus with diabetic autonomic (poly)neuropathy (principal); K31.84 Gastroparesis
CPT/HCPCS: J1170; J2405; J7030

== ENCOUNTER 2017-02-25 09:05 | Emergency (ER) | payer MEDICAID ==
[~2017-02-25] VITALS: Ht 160 cm; Wt 68.2 kg
[2017-02-25 09:15] VITALS: BP 128/80; TEMP 98.3
[2017-02-25 10:06] LABS: BASO % 0.3 % (0.0-2.0); EOS # 0.1 (0.0-0.7); EOS % 1.1 % (0-4.0); GRAN # 5.9 (1.4-6.5); GRAN % 64.6 % (42.2-75.2); HEMATOCRIT 37.8 % (37.0-47.0); HEMOGLOBIN 12.8 g/dl (12.5-16.0); LYMPH # 2.6 (1.2-3.4); LYMPH % 27.9 % (20.0-51.0); MEAN CELL VOLUME 91 fl (80.0-100.0); MEAN CORPUSCULAR HEMOGLOBIN 31 pg (27.0-31.0); MEAN CORPUSCULAR HGB CONC 34 g/dl (33.0-37.0); MONO # 0.5 (0.1-0.6); MONO % 5.9 % (1.7-9.3); RED BLOOD COUNT 4.14 M/mm3 (4.10-5.30); WHITE BLOOD COUNT 9.2 K/mm3 (4.8-10.8)
[2017-02-25 10:13] LABS: PLATELET COUNT 59 K/mm3 (130-400)
[2017-02-25 10:37] LABS: COLLECTION METHOD CLEAN CATCH
[2017-02-25 10:47] LABS: MUCOUS Present /lpf; PH 6 (5-8); URINE APPEARANCE Cloudy; URINE BACTERIA Rare /hpf; URINE BILIRUBIN Negative (NEGATIVE); URINE BLOOD Negative (NEGATIVE); URINE COLOR Yellow; URINE GLUCOSE 2+ (NEGATIVE); URINE KETONE Negative (NEGATIVE); URINE LEUKOCYTE ESTERASE Negative (NEGATIVE); URINE PROTEIN(semi-quant) Negative (NEGATIVE); URINE RBC 0-2 /hpf; URINE UROBILINOGEN Negative (NEGATIVE)
[2017-02-25 10:51] LABS: CALCIUM 10.4 mg/dL (8.4-10.2); CREATININE, serum 0.86 mg/dL (0.52-1.25); POTASSIUM 3.8 mmol/L (3.4-5.0)
[2017-02-25 12:04] VITALS: PULSE 101
== END 2017-02-25 12:05 | disposition home or self-care (01) ==
LOC: COL.ER 09:05
PROVIDERS: Emergency Medicine
DX: E11.43 Type 2 diabetes mellitus with diabetic autonomic (poly)neuropathy (principal); K31.84 Gastroparesis; I10 Essential (primary) hypertension; K21.9 Gastro-esophageal reflux disease without esophagitis; Z79.4 Long term (current) use of insulin; Z90.49 Acquired absence of other specified parts of digestive tract; Z98.890 Other specified postprocedural states
CPT/HCPCS: J2765; J3010; J7030